=== PATIENT | male | born 1965 ===

== ENCOUNTER 2019-07-09 10:29 | Emergency (ER) | payer MEDICARE, BC ==
[~2019-07-09] VITALS: Ht 175.3 cm; Wt 102.6 kg
[~2019-07-09 10:29] MED LIST: ALPR1TAB7 PO; ASPI325T30 PO; ATEN-51 PO; ATOR40TA21 PO; BUPR150T3 PO; DULO60CA6 PO; GABA-526 PO; IMIQ7.5C3 TP; OXYC10TA45 PO; OXYC20TA41 PO; PANT40TA3 PO; RTPRO5 IH; [UNRECOGNIZED DRUG - MIXTURE]
[2019-07-09 10:40] VITALS: BP 126/70; PULSE 63; RESP 18; Ht 175.3 cm; Wt 102.6 kg
== END 2019-07-09 11:51 | disposition home or self-care (01) ==
LOC: FTE 10:29
DX: A63.0 Anogenital (venereal) warts (principal); I25.2 Old myocardial infarction; I10 Essential (primary) hypertension; Z79.82 Long term (current) use of aspirin
CPT/HCPCS: 99283